=== PATIENT | female | born 1970 | race Caucasian/White ===

== ENCOUNTER 2017-10-24 20:29 | Emergency (ER) | payer MEDICAID ==
[~2017-10-24] VITALS: Ht 152.4 cm; Wt 59.0 kg
[2017-10-24 22:29] VITALS: BP 112/70
== END 2017-10-25 00:51 | disposition home or self-care (01) ==
LOC: ER 20:29
DX: S52.122A Displaced fracture of head of left radius, initial encounter for closed fracture (principal); S52.602A Unspecified fracture of lower end of left ulna, initial encounter for closed fracture; W17.89XA Other fall from one level to another, initial encounter; Y93.89 Activity, other specified; Y92.89 Other specified places as the place of occurrence of the external cause; Y99.8 Other external cause status
CPT/HCPCS: 73080

== ENCOUNTER 2023-06-24 06:32 | Emergency (ER) | payer MEDICAID ==
[~2023-06-24] VITALS: Ht 160 cm; Wt 59.0 kg
[2023-06-24] MEDS: FLUTICASONE PROP NASAL SPR 0.05 % (50MCG) 16GM EACHNOSTRI ONE (07:21)
[2023-06-24 07:24] VITALS: BP 145/94; PULSE 75; RESP 14; TEMP 98.2; O2SAT 98
== END 2023-06-24 08:24 | disposition home or self-care (01) ==
LOC: EDBD 06:32 → ER 06:32
DX: J01.10 Acute frontal sinusitis, unspecified (principal)
CPT/HCPCS: 70450